=== PATIENT | female | born 1985 | race Caucasian/White ===

== ENCOUNTER 2020-05-29 06:38 | Inpatient (IN) ==
[2020-05-29] MEDS ORDERED: ONDANSETRON 4 MG/2 ML VIAL IV PRN ×2 (07:10→20:50)
[2020-05-29] MEDS ORDERED: BUTORPHANOL 2 MG/ML VIAL IV PRN (07:10)
[2020-05-29] MEDS ORDERED: BUTORPHANOL 1 MG/ML VIAL IV PRN (07:10)
[2020-05-29] MEDS ORDERED: LACTATED RINGERS 1,000 ML IV PRN (07:10)
[2020-05-29] MEDS ORDERED: OXYTOCIN/LR 20 UNIT/1,000 ML BAG IV SCH (07:30)
[2020-05-29 08:01] LABS: Basophils % 0.3 % (0.0-0.8); Eosinophils % 0.5 % (0.00-10.9); Hematocrit 33.4 VOL% (35.7-47.0); Hemoglobin 10.4 GM/DL (12.0-16.0); Immature Granulocytes % 1.2 %; Immature Granulocytes Absolute 0.09 #; Lymphocytes # 1.5 10*3/uL (1.4-4.0); Lymphocytes % 20.6 % (21.3-54.2); Mean Corpuscular HGB Conc 31.1 GM/DL (32-36); Mean Platelet Volume 11.6 FL (9.6-12.0); Monocytes % 6.1 % (1.7-12.7); Neutrophils % 71.3 % (38.7-73.9); Platelet Count 221 T/CUMM (130-400); Red Blood Count 3.93 MC/CUMM (3.8-5.5); Red Cell Distribution Width 13.4 % (9.3-17.3); White Blood Count 7.3 T/CUMM (4-12)
[2020-05-29] MEDS ORDERED: NALOXONE 0.4 MG/ML VIAL IV PRN (12:16)
[2020-05-29] MEDS ORDERED: ePHEDrine 50 MG/ML VIAL IV PRN (12:16)
[2020-05-29] MEDS ORDERED: diphenhydrAMINE 50 MG/1 ML VIAL IV PRN ×2 (12:16)
[2020-05-29] MEDS ORDERED: LACTATED RINGERS 1,000 ML IV ONE (12:16)
[2020-05-29] MEDS ORDERED: CITRIC ACID/SODIUM CITRATE 30 ML UDCUP PO ONE (12:16)
[2020-05-29] MEDS ORDERED: PROMETHAZINE 25 MG/1 ML VIAL IM ONE (12:16)
[2020-05-29] MEDS ORDERED: FAMOTIDINE 20 MG/2 ML VIAL IV ONE (12:16)
[2020-05-29] MEDS ORDERED: hydrOXYzine HCL 25 MG/1 ML VIAL IM PRN (12:16)
[2020-05-29] MEDS ORDERED: fentaNYL 2 MCG/ROPIV 0.2% EPID 100 ML EPIDURAL SCH (12:30)
[2020-05-29] MEDS ORDERED: LACTATED RINGERS 1,000 ML IV SCH (12:30)
[2020-05-29 18:50] LABS: Bilirubin,Urine Negative (Negative); Blood, Urine Negative (Negative); Glucose,Urine (UA) Negative (Negative); Ketones,Urine 20 mg/dL (Negative); Mucus,Urine Occasional /LPF (Occasional); Nitrite,Urine Negative (Negative); Protein,Urine Negative; RBC,Urine <1 /HPF (0-4); Squamous Epithelial Cell,Urine Occasional /HPF (0-10); Urine Appearance CLEAR (Clear); Urine Color Yellow (Yellow); Urine Specific Gravity 1.015 (1.001-1.035); Urine Urobilinogen < 2.0 EU/DL (0.2-1.0); WBC,Urine 1 /HPF (0-6)
[2020-05-29] MEDS ORDERED: TRANEXAMIC ACID 1,000 MG/10 ML VIAL ONE (19:55)
[2020-05-29] MEDS ORDERED: miSOPROStoL 200 MCG TABLET ONE (19:55)
[2020-05-29] MEDS ORDERED: LIDOCAINE 1% 50 ML VIAL ONE (19:56)
[2020-05-29] MEDS ORDERED: METHYLERGONOVINE 0.2 MG/1 ML AMP ONE (19:56)
[2020-05-29] MEDS ORDERED: SODIUM CHLORIDE 0.9% 0 ML IV ONE (19:56)
[2020-05-29] MEDS ORDERED: CARBOPROST TROMETHAMINE 250 MCG/ML AMP IM ONE (19:56)
[2020-05-29 20:21] LABS: Cord Arterial Blood HCO3 21.8 MMOL/L
[2020-05-29 20:22] LABS: Cord Venous Blood HCO3 21.9 MMOL/L; Cord Venous Blood PCO2 35.4 MMHG; Cord Venous Blood PO2 33.4 MMHG
[2020-05-29] MEDS ORDERED: ACETAMINOPHEN 325 MG TABLET PO PRN (20:50)
[2020-05-29] MEDS ORDERED: HYDROCORTISONE 2.5% RECTAL CREAM 30 GM TUBE TOP PRN (20:50)
[2020-05-29] MEDS ORDERED: WITCH HAZEL PADS 100/JAR TOP PRN (20:50)
[2020-05-29] MEDS ORDERED: BISACODYL 10 MG SUPP RECTAL PRN (20:50)
[2020-05-29] MEDS ORDERED: DIPH/TET/ACEL PERT BOOSTER VACCINE 0.5 ML VIAL IM ONE (20:50)
[2020-05-29] MEDS ORDERED: oxyCODONE/ACETAMINOPHEN 5-325 MG TABLET PO PRN ×2 (20:50)
[2020-05-29] MEDS ORDERED: BENZOCAINE 20%/MENTHOL 0.5% SPRAY 56 GM CAN TOP PRN (20:50)
[2020-05-29] MEDS ORDERED: OXYTOCIN/LR 20 UNIT/1,000 ML BAG IV ONE (20:50)
[2020-05-29] MEDS ORDERED: MEASLES/MUMPS/RUBELLA VACCINE 0.5 ML VIAL SUBCUT ONE (20:50)
[2020-05-29] MEDS ORDERED: LANOLIN 50% CREAM 0.3 OZ TUBE TOP PRN (20:50)
[2020-05-29] MEDS ORDERED: RHO(D) IMMUNE GLOBULIN 300 MCG SYRINGE IM ONE (20:50)
[2020-05-30] MEDS: IBUPROFEN 800 MG TABLET PO PRN ×3 (00:19→16:16)
[2020-05-30] MEDS: DOCUSATE SODIUM 100 MG CAPSULE PO SCH ×3 (02:01→21:06)
[2020-05-30 06:46] LABS: Basophils % 0.2 % (0.0-0.8); Eosinophils % 0.4 % (0.00-10.9); Hematocrit 30.8 VOL% (35.7-47.0); Hemoglobin 9.5 GM/DL (12.0-16.0); Immature Granulocytes % 0.6 %; Immature Granulocytes Absolute 0.06 #; Lymphocytes # 1.7 10*3/uL (1.4-4.0); Lymphocytes % 18.5 % (21.3-54.2); Mean Corpuscular HGB Conc 30.8 GM/DL (32-36); Mean Platelet Volume 11.7 FL (9.6-12.0); Monocytes % 7.7 % (1.7-12.7); Neutrophils % 72.6 % (38.7-73.9); Platelet Count 186 T/CUMM (130-400); Red Blood Count 3.58 MC/CUMM (3.8-5.5); Red Cell Distribution Width 13.6 % (9.3-17.3); White Blood Count 9.3 T/CUMM (4-12)
[2020-05-30] MEDS ORDERED: MAGNESIUM HYDROXIDE SUSP 30 ML UDCUP PO PRN (21:12)
[2020-05-31 07:35] VITALS: BP 128/86
[2020-05-31] MEDS: DOCUSATE SODIUM 100 MG CAPSULE PO SCH (07:59)
[2020-05-31] MEDS: IBUPROFEN 800 MG TABLET PO PRN (08:00)
== END 2020-05-31 10:50 | disposition home or self-care (01) | DRG 807 ==
LOC: N.LD 06:38 → N.OB 05-30 02:37
PROVIDERS: ADMIT Obstetrics & Gynecology; ATTEND Obstetrics & Gynecology